=== PATIENT | male | born 1965 | race African-American/Black ===

== ENCOUNTER 2018-05-02 13:03 | Emergency (ER) | payer MEDICAID, OTHER ==
[~2018-05-02] VITALS: Ht 185.4 cm; Wt 74.0 kg
[2018-05-02 15:04] VITALS: BP 121/66
[2018-05-02 15:06] LABS: BASOPHILS % 1.7 % (0.0-2.0); CHLORIDE 107 mEq/L (98-107); EOSINOPHILS % 3.3 % (0.0-5.0); HEMATOCRIT. 33.4 % (42.0-52.0); HEMOGLOBIN. 11.5 g/dL (14.0-18.0); LYMPHOCYTES % 34.7 % (20.0-50.0); MEAN CORPUSCULAR HEMOGLOBIN 32.7 pg (28.0-32.0); MEAN CORPUSCULAR VOLUME 94.9 fL (80.0-94.0); MEAN PLATELET VOLUME 8.2 fl (7.4-10.4); NEUTROPHILS % 51.3 % (40.0-76.0); PLATELET 187 x1000/uL (130-400); RED BLOOD CELL COUNT 3.52 mill/uL (4.7-6.1); RED CELL DISTRIBUTION WIDTH 13.4 % (11.6-14.6)
[2018-05-02 15:07] LABS: PROTHROMBIN TIME 10.9 sec (9.4-11.6)
== END 2018-05-02 15:10 | disposition home or self-care (01) ==
LOC: ER 14:02
DX: K40.90 Unilateral inguinal hernia, without obstruction or gangrene, not specified as recurrent (principal)
CPT/HCPCS: 36415; 74176; 80048; 85025; 85610; 99285

== ENCOUNTER 2021-02-13 10:38 | Emergency (ER) | payer MEDICAID ==
[~2021-02-13] VITALS: Ht 185.4 cm; Wt 77.0 kg
[2021-02-13 11:25] LABS: EOSINOPHILS % 3.1 % (0.0-5.0); HEMATOCRIT. 38.2 % (42.0-52.0); LYMPHOCYTES % 25.2 % (20.0-50.0); MEAN CORPUSCULAR HEMOGLOBIN 32.5 pg (28.0-32.0); MEAN PLATELET VOLUME 8.6 fl (7.4-10.4); NEUTROPHILS % 64.7 % (40.0-76.0); PLATELET 203 x1000/uL (130-400); RED BLOOD CELL COUNT 3.98 mill/uL (4.7-6.1); RED CELL DISTRIBUTION WIDTH 13.9 % (11.6-14.6)
[2021-02-13] MEDS ORDERED: KETOROLAC 30MG/ML VIAL IV ONE (11:30)
[2021-02-13 11:32] LABS: CHLORIDE 109 mEq/L (98-107)
[2021-02-13 11:36] LABS: PROTHROMBIN TIME 10.8 sec (9.6-11.0)
[2021-02-13] MEDS ORDERED: IOHEXOL-300 100 ML BOTTLE ONE (15:18)
[2021-02-13 16:45] VITALS: BP 125/72
== END 2021-02-13 17:00 | disposition left against medical advice (07) ==
LOC: ER 10:38 → CANBEDREQ 17:40
DX: R00.1 Bradycardia, unspecified (principal); R77.8 Other specified abnormalities of plasma proteins; F12.10 Cannabis abuse, uncomplicated; I10 Essential (primary) hypertension; Z98.890 Other specified postprocedural states
CPT/HCPCS: 36415; 71045; 74177; 80053; 83605; 83690; 84484; 85025; 85610; 96374; 99285; J1885; Q9967; Z7610